=== PATIENT | male | born 1950 | race African-American/Black ===

== ENCOUNTER → 2017-02-26 | Outpatient (CLI) | payer MEDICARE, MEDICAID ==
[2016-03-08 11:22] VITALS: BP 119/68
[~2017-02-26] MED LIST: ATOR40TA59 PO; DOXA4TAB3 PO
--- NOTE | 2017-02-26 14:06 | RAD ---
Indication:Right upper quadrant pain Grayscale images of the abdomen were obtained. Comparison none. Note is made of a CT examination the abdomen and pelvis 12/08/2014. Liver:There is some increased attenuation of the ultrasound beam by the liver compatible with fatty infiltration. A focal mass lesion is not seen and the visualized liver. Gallbladder:Normal. The common bile duct diameter of approximately 3 mm is also normal Spleen:Normal Pancreas:Poorly visualized and largely obscured by gas Kidneys:There is a right renal cyst measuring approximately 3 cm in greatest dimension. There is a left renal cyst measuring approximately 2.4 cm in greatest dimension. No hydronephrosis or solid mass is seen associated with either kidney Abdominal aorta and IVC:The proximal and distal abdominal aorta appeared unremarkable. The mid abdominal aorta was excluded by gas. That portion of the inferior vena cava which was seen appeared unremarkable. Ancillary findings:None Impression:Fatty infiltration of the liver. Renal cysts. Midline structures partially obscured
--- NOTE | 2017-02-27 10:36 | RAD ---
Indication chest pain for 3 to 4 months. Shortness of breath. History of smoking. Cough. PA and lateral views of the chest were obtained. No prior plain film imaging of the chest is available. Heart size and pulmonary vessels are within normal limits. There is slight right hilar fullness. This is likely all vascular in nature. Comparison with old films establishing stability advised. If old films are unavailable then CT could be performed for confirmation. An acute parenchymal infiltrate is not seen. There is no significant pleural fluid or pneumothorax. IMPRESSION: No definite acute process. Slight right hilar fullness. See above discussion
== END | disposition home or self-care (01) ==
LOC: US 11:24
PROVIDERS: ATTEND Family Medicine
DX: K76.0 Fatty (change of) liver, not elsewhere classified (principal); N28.1 Cyst of kidney, acquired
CPT/HCPCS: 71020; 76700

== ENCOUNTER → 2017-03-05 | Outpatient (CLI) | payer MEDICARE, MEDICAID ==
[2016-03-08 11:22] VITALS: BP 119/68
--- NOTE | 2017-03-05 14:33 | RAD ---
CT of the chest without contrast, 03/05/2017: History: Shortness of breath, recent infiltrate Noncontrast scans were obtained as requested. There is mild calcific plaquing of the thoracic aorta without evidence of aneurysm. Moderate scattered coronary artery calcifications are present. The heart is not enlarged. No mediastinal or hilar adenopathy is seen. There are only minimal linear opacities in the lingula and lateral aspect of the right lower lobe suggesting scarring. No pulmonary mass or significant consolidation is seen. A couple of tiny scattered subpleural blebs are noted. There is no evidence of pleural fluid. A small low-density lesion in the posterior aspect of the upper pole of the right kidney is compatible with a cyst. There are moderate scattered spurs in the spine. IMPRESSION: 1. Minimal linear scarring in the lungs. 2. Calcific plaquing of the aorta and coronary arteries. 3. No acute abnormality is detected. PQRS Compliance Statement: One or more of the following individualized dose reduction techniques were utilized for this examination: 1. Automated exposure control 2. Adjustment of the mA and/or kV according to patient size 3. Use of iterative reconstruction technique
== END | disposition home or self-care (01) ==
LOC: CT 10:35
PROVIDERS: ATTEND Family Medicine
DX: I25.10 Atherosclerotic heart disease of native coronary artery without angina pectoris (principal)
CPT/HCPCS: 71250

== ENCOUNTER 2017-07-23 08:58 | Day surgery (SDC) | payer MEDICARE, MEDICAID ==
[~2017-07-23] VITALS: Ht 185.4 cm; Wt 49.0 kg
[~2017-07-23 08:58] MED LIST changes: +ASPI325T8 PO; +CHOL10003 PO; +HYDROmorphone 2 MG/ML VIAL IV PRN; +IV RINGERS,LACTATED 1000ML 1,000 ML IV SCH; +LIDOCAINE 1% PF 2 ML VIAL. ID PRN; +MORPHINE SULFATE 2 MG/ML DISP.SYRIN. IV PRN; +ONDANSETRON PF 4 MG/2 ML VIAL. IV PRN; +PROCHLORPERAZINE 10 MG/2 ML VIAL. IV PRN; +TAMS0.4C2 PO; +fentaNYL PF VIAL 100 MCG/2 ML VIAL IV PRN
[2017-07-23] MEDS ORDERED: LIDOCAINE 1% PF 30 ML VIAL. ONE (09:21)
[2017-07-23] MEDS ORDERED: PROPOFOL 20 ML IV ONE (10:10)
[2017-07-23] MEDS ORDERED: LIDOCAINE 2% PF Vial for OR 5 ML VIAL. ONE (10:10)
[2017-07-23] MEDS ORDERED: DEXAMETHASONE SOD PHOS 20 MG/5 ML VIAL. ONE (10:12)
[2017-07-23] MEDS ORDERED: fentaNYL PF VIAL 100 MCG/2 ML VIAL ONE (10:12)
[2017-07-23] MEDS ORDERED: ONDANSETRON PF 4 MG/2 ML VIAL. ONE (10:12)
[2017-07-23] MEDS ORDERED: ePHEDrine PF IN SALINE 50 MG/5 ML DISP.SYRIN IV ONE (11:09)
[2017-07-23] MEDS ORDERED: SEVOFLURANE 31 TO 60 MINUTES. IH ONE (11:10)
--- NOTE | 2017-07-23 11:18 | DISCH ---
DISCHARGE INSTRUCTIONS Condition on Discharge Condition on Discharge: Stable Activity After Discharge Activity Instructions for Disc: Other, see below Other activity instructions: no hard grasp with left hand Diet after Discharge Diet after Discharge: Regular Wound Incision Care Wound/Incision Care: Keep wound elevated, Change dressing Other wound/incision instructi: may remove dressing in 3 days, may shower no soaking hand Contacting the DRAlfreda after DC Call your doctor for: Concerns you may have Follow-Up Follow up with: Lamin 10 days JABARI RUIZ MD Jul 23, 2017 11:18
[2017-07-23] MEDS ORDERED: HYDR-965 PO (11:19)
[2017-07-23] MEDS ORDERED: SEVOFLURANE 16 TO 30 MINUTES. IH ONE (11:19)
[2017-07-23] MEDS ORDERED: PHENYLEPHRINE in 0.9% NACL PF 1 MG/10 ML DISP.SYRIN. IV ONE (11:26)
[2017-07-23] MEDS ORDERED: HYDROcodone/APAP 5/325MG 1 TAB TABLET PO ONE (11:45)
[2017-07-23] MEDS ORDERED: HYDROcodone/APAP 5/325MG 1 TAB TABLET ONE (11:46)
[2017-07-23 12:25] VITALS: BP 149/66
--- NOTE | 2017-07-23 19:23 | PDOC4 ---
Operative Note Operative Note Date of surgery: 07/23/2017 Preoperative diagnosis: Left third trigger finger Postoperative diagnosis: Same Operative procedure: Left third trigger finger release Surgeon: Lamin Anesthesia: Gen. Estimated blood loss 1 mL Complications: None Operative indications: Patient is a 66-year-old male with painful triggering of his left third finger that is been unresponsive to nonoperative management. I had discussed with him the possibility of injection observation and anti- inflammatories. His symptoms are becoming more limited and he was interested in a permanent solution of surgical release as opposed to potentially a temporary solution with injection. We talked about the possibility of infection or other medical or other anesthetic complications and the necessity of eliminating hard grasping for about the next 3 weeks and is healing. All his questions were answered he wants proceed with surgical evaluation and treatment. Operative text: Patient was identified procedure verified patient placed in the supine position on the operating room table. After adequate amounts of general anesthesia were administered tourniquet was placed on the left upper extremity left upper extremity was prepped and draped in standard sterile fashion and after timeout was performed patient procedure identified and verified the left upper extremity was exsanguinated and tourniquet inflated to 250 mmHg. An incision was made along the distal palmar crease overlying the flexor tendon of the third digit dissection carried out down to the tendon sheath and the A1 dane was divided under direct visualization and the neurovascular bundles on each side were protected. Tendon was noted to glide fully through the entire range of motion and tendons were otherwise in good condition. Closure accomplished with nylon suture in a mattress fashion sterile dressings were applied fingers were noted be warm pink find deflation of tourniquet patient was returned recovery room in stable condition having tolerated procedure well JABARI RUIZ MD Jul 23, 2017 19:23
== END 2017-07-23 12:25 | disposition home or self-care (01) ==
LOC: SURG 08:58
PROVIDERS: ATTEND Orthopaedic Surgery
DX: M65.332 Trigger finger, left middle finger (principal); I25.10 Atherosclerotic heart disease of native coronary artery without angina pectoris; K76.0 Fatty (change of) liver, not elsewhere classified; N40.0 Benign prostatic hyperplasia without lower urinary tract symptoms; I10 Essential (primary) hypertension; E78.00 Pure hypercholesterolemia, unspecified; E66.9 Obesity, unspecified; F17.210 Nicotine dependence, cigarettes, uncomplicated; Z80.9 Family history of malignant neoplasm, unspecified; Z79.899 Other long term (current) drug therapy; Z98.890 Other specified postprocedural states
CPT/HCPCS: 26055; J0690; J1100; J2370; J2405; J2704; J3010; J2001

== ENCOUNTER → 2021-02-16 | Outpatient (CLI) | payer MEDICARE, MEDICAID ==
[~2021-02-16] MED LIST changes: +HYDR-3165 PO; -HYDROmorphone 2 MG/ML VIAL IV PRN; -IV RINGERS,LACTATED 1000ML 1,000 ML IV SCH; -LIDOCAINE 1% PF 2 ML VIAL. ID PRN; -MORPHINE SULFATE 2 MG/ML DISP.SYRIN. IV PRN; -ONDANSETRON PF 4 MG/2 ML VIAL. IV PRN; -PROCHLORPERAZINE 10 MG/2 ML VIAL. IV PRN; -fentaNYL PF VIAL 100 MCG/2 ML VIAL IV PRN
--- NOTE | 2021-02-16 14:34 | RAD ---
EXAM: Chest CT low dose lung cancer screening without contrast. HISTORY: Cigarette smoking. TECHNIQUE: Computed tomographic images of the chest were obtained without contrast. Multiplanar refor matting was performed. *One or more of the following individualized dose reduction techniques were utilized for this examina tion: 1. Automated exposure control. 2. Adjustment of the mA and/or kV according to patient size. 3. Use of iterative reconstruction technique. COMPARISON: None. FINDINGS: The heart is normal in size. The aorta is normal in caliber. There is calcified atheroscler otic plaque involving the aorta and coronary arteries. There is no lymphadenopathy. There is no infil trate, pleural effusion or pneumothorax. There is mild emphysema with biapical subpleural bleb format ion. There is linear scarring within the lateral right upper lobe anterior medial right middle lobe. There is a 4 mm pleural-based nodule within the anterior left upper lobe (series 2, image 149). There is no acute finding involving the upper abdomen. There are degenerative changes involving the spine. There is no suspicious osseous lesion. IMPRESSION: 1. 4 mm pleural-based nodule within the anterior left upper lobe. Lung RADS category 2: Follow-up can be performed in 12 months. 2. Pulmonary emphysema. Electronically signed by: Rebeca Montoya MD (02/16/2021 2:32 PM) [id number]
--- NOTE | 2021-02-16 14:36 | RAD ---
EXAM: Renal sonogram. HISTORY: Renal cyst. TECHNIQUE: Sonographic imaging the kidneys and bladder was performed. COMPARISON: None. FINDINGS: The kidneys are normal in size. There is a 4.0 cm simple appearing cyst within the upper po le the right kidney. There is a 2.7 cm simple appearing cyst within the lower pole the left kidney. T here is no hydronephrosis. There is an enlarged prostate with a volume of 117 cc. This deforms the bl adder base. There is incidental hepatic steatosis. IMPRESSION: 1. Simple appearing bilateral renal cysts. Follow-up as energy performed for simple cysts. 2. Prostatomegaly. This results in deformation of the bladder base. 3. Hepatic steatosis. Electronically signed by: Rebeca Montoya MD (02/16/2021 2:34 PM) [id number]
== END ==
LOC: US 13:55
PROVIDERS: ATTEND Family Medicine
DX: J43.9 Emphysema, unspecified (principal); R91.1 Solitary pulmonary nodule; K76.0 Fatty (change of) liver, not elsewhere classified; N40.0 Benign prostatic hyperplasia without lower urinary tract symptoms; N28.1 Cyst of kidney, acquired; F17.210 Nicotine dependence, cigarettes, uncomplicated
CPT/HCPCS: 71271; 76770

== ENCOUNTER → 2021-08-10 | Outpatient (CLI) | payer MEDICARE, MEDICAID ==
--- NOTE | 2021-08-10 11:25 | RAD ---
EXAM: Bilateral lower extreme arterial Doppler sonogram. HISTORY: Peripheral vascular disease. Pain. Atherosclerosis. TECHNIQUE: Tsang scale and color Doppler sonographic imaging of the lower extremity arteries with spec tral waveform analysis was performed. COMPARISON: None. FINDINGS: There are abnormal monophasic waveforms involving the left lower extremity arteries from th e mid superficial femoral artery to the foot. There are abnormal monophasic waveforms involving the r ight lower extremity arteries from the posterior tibial artery to the foot. The size or consistent wi th hemodynamically significant proximal stenosis. There is an elevated peak systolic velocity within the right common femoral artery, measuring 208 cm/ s. There are normal peak systolic velocities throughout the remainder the lower extremity arteries. N o arterial occlusion is seen. IMPRESSION: 1. Abnormal monophasic waveforms due to low flow in the setting of hemodynamically significantly prox imal stenosis from the right posterior tibial artery to the foot and from the left mid superficial fe moral artery to the foot. 2. Elevated peak systolic velocity within the right common femoral artery due to suspected stenosis. 3. No evidence of arterial occlusion. Electronically signed by: Rebeca Montoya MD (08/10/2021 11:22 AM) [id number]
== END ==
LOC: US 10:28
PROVIDERS: ATTEND Family Medicine
DX: R93.89 Abnormal findings on diagnostic imaging of other specified body structures (principal); I73.9 Peripheral vascular disease, unspecified; M79.604 Pain in right leg; M79.605 Pain in left leg
CPT/HCPCS: 93925

== ENCOUNTER 2021-08-24 08:01 | Outpatient (CLI) | payer MEDICARE, MEDICAID ==
[2021-08-24] VITALS (11 sets, daily range): BP systolic 154–186; BP diastolic 67–88
[~2021-08-24] VITALS: Ht 185.4 cm; Wt 109.0 kg
[2021-08-24 08:30] LABS: BASO # 0.1 x10^3/uL (0.0-0.2); BASO % 1 % (0-3); EOS # 0.3 x10^3/uL (0.0-0.7); EOS % 5 % (0-3); HEMATOCRIT 40.7 % (39.0-53.0); HEMOGLOBIN 13.5 g/dL (13.0-17.5); LYMPH # 1.8 x10^3/uL (1.0-4.8); LYMPH % 29 % (24-48); MEAN CORPUSCULAR HEMOGLOBIN 29 pg (25-35); MEAN CORPUSCULAR HGB CONC 33 g/dL (31-37); MEAN CORPUSCULAR VOLUME 86 fL (79-100); MONO # 0.6 x10^3/uL (0.0-1.1); MONO % 10 % (0-9); NEUT # 3.3 x10^3/uL (1.8-7.7); NEUT % 55 % (31-73); PLATELET COUNT 365 x10^3/uL (140-400); RED BLOOD COUNT 4.74 x10^6/uL (4.30-5.70); RED CELL DISTRIBUTION WIDTH 15.4 % (11.5-14.5); WHITE BLOOD COUNT 6.1 x10^3/uL (4.0-11.0)
[2021-08-24 08:43] LABS: PROTHROMBIN TIME PATIENT 13.2 SEC (11.7-14.0)
[2021-08-24 08:52] LABS: CALCIUM 8.9 mg/dL (8.5-10.1); CREATININE 0.9 mg/dL (0.7-1.3); GFR 100.4; POTASSIUM 3.6 mmol/L (3.5-5.1)
[2021-08-24] MEDS ORDERED: fentaNYL PF VIAL 100 MCG/2 ML VIAL ONE (08:56)
[2021-08-24] MEDS ORDERED: HEPARIN for IV BOLUS 10,000 UNIT/10 ML VIAL. ONE (08:56)
[2021-08-24] MEDS ORDERED: MIDAZOLAM HCL/PF 2 MG/2 ML VIAL. ONE (08:56)
[2021-08-24] MEDS ORDERED: MIDAZOLAM HCL/PF 2 MG/2 ML VIAL. IV ONE (09:15)
[2021-08-24] MEDS ORDERED: LIDOCAINE 1% Multi-Dose 20 ML VIAL. INJ ONE (09:15)
[2021-08-24] MEDS ORDERED: fentaNYL PF VIAL 100 MCG/2 ML VIAL IV ONE (09:15)
[2021-08-24] MEDS ORDERED: IODIXANOL 320 MG/ML 100 ML VIAL. IART ONE (09:15)
[2021-08-24] MEDS ORDERED: LIDOCAINE WITH 8.4% SOD BICARB 3 ML DISP.SYRIN. ONE (09:36)
[2021-08-24] MEDS ORDERED: IODIXANOL 320 MG/ML 100 ML VIAL. ONE (09:40)
[2021-08-24] MEDS ORDERED: HEPARIN for ARTERIAL LINE 1,500 ML ONE (09:40)
[2021-08-24] MEDS ORDERED: LIDOCAINE WITH 8.4% SOD BICARB 3 ML DISP.SYRIN. INJ ONE (10:00)
[2021-08-24] MEDS ORDERED: HEPARIN for IV BOLUS 10,000 UNIT/10 ML VIAL. IV ONE (10:45)
[2021-08-24] MEDS ORDERED: CLOPIDOGREL BISULFATE 75 MG TABLET ONE (11:13)
[2021-08-24] MEDS ORDERED: CLOPIDOGREL BISULFATE 75 MG TABLET PO ONE (11:15)
--- NOTE | 2021-08-24 13:30 | NUR ---
Plavix 75mg po daily script called into [facility] per patient's request. Patient took loading dose of 300mg po today and will need to remain on Plavix for [address] Espinoza.
[2021-08-24] MEDS ORDERED: CLOP75TA PO (13:34)
--- NOTE | 2021-08-24 14:44 | NUR ---
patient ambulated and tolerated PO. PIV dc'd. discharge instructions reviewed with patient and family. Pt home with family in private vehicle.
--- NOTE | 2021-08-24 16:17 | RAD ---
08/24/2021 1. Abdominal aortogram 2. Pelvic angiography 3. Left lower extremity angiography including selective injections of the left common femoral artery, and superficial femoral 4. Treatment of short segment, near occlusion, mid left superficial femoral artery placement of a cov ered stent 5. Right lower extremity angiography Discussion: 70-year-old male with known peripheral vascular disease and left lower extremity claudica tion. Ultrasound suggests significant stenosis of the left SFA. Consent: The procedure was explained in its entirety to the patient or the patients designated repres entative by a member of the treatment team, including a discussion of the risks, benefits and commonl y accepted alternatives to the procedure, as well as the expected consequences of no therapy whatsoev er. Discussion of the risks included, but was not limited to, those that are most frequent and thos e that are rare but possibly severe or life-threatening, as well as the possibility of unforeseen com plications. Procedural details: The right groin was prepped and draped using maximum sterile barrier technique. 1 % lidocaine was administered for local anesthesia. Ultrasound evaluation demonstrates the right commo n femoral artery be patent. The artery was accessed under direct ultrasound guidance using micropunct ure technique. Reference ultrasound images were saved medical record. A 5 [place] sheath was placed. T he catheter was advanced into the abdominal aorta. Abdominal aortogram was obtained. Visualized major abdominal aortic branches are patent. The distal abdominal aorta is densely calcified, and there is a small penetrating ulcer along the left side of the abdominal aorta. The catheter was repositioned in the inferior abdominal aorta and pelvic angiograms were obtained. Mi ld stenosis of the left internal iliac artery is seen. No hemodynamically significant aortoiliac megan c stenosis was identified. Catheter was repositioned in the left common femoral artery and angiograms were obtained demonstratin g a patent proximal left SFA and a rather sizable, patent profunda artery. The catheter was repositioned in the superficial femoral artery and angiograms were obtained demonstr ating near occlusion of the mid distal left SFA. The stenosis is calcified, and markedly irregular. T he popliteal artery and posterior runoff vessels are patent. The stenosis was traversed and predilated with a 5 mm balloon. A 6 mm x 5 cm moderate covered stent w as placed. This was postdilated to 6 mm resulting in significantly improved morphology and flow. Limi frederick angiograms of the right lower extremity were then obtained demonstrating similar significant sten osis in the distal right SFA. The right common femoral puncture site was confirmed. A minx device was deployed in the sheath was removed. Hemostasis was achieved. Sterile dressings were applied. IMPRESSION: 1. No hemodynamically significant aortoiliac or tibial disease on the left 2. Near occlusion of the left mid to distal SFA treated with placement of a covered stent 3. Moderate stenosis of the distal right SFA. Patient will recover from today's procedure and should right claudication become an issue, may return for further evaluation. Electronically signed by: Rob Espinoza MD (08/24/2021 4:15 PM) [id number]
[2021-08-25] MEDS ORDERED: CLOPIDOGREL BISULFATE 75 MG TABLET PO SCH (08:00)
== END 2021-08-24 14:45 | disposition home or self-care (01) ==
LOC: INTRAD 08:01
PROVIDERS: ATTEND Family Medicine
DX: I70.213 Atherosclerosis of native arteries of extremities with intermittent claudication, bilateral legs (principal); I10 Essential (primary) hypertension; E78.00 Pure hypercholesterolemia, unspecified; E66.9 Obesity, unspecified; N40.0 Benign prostatic hyperplasia without lower urinary tract symptoms; F17.210 Nicotine dependence, cigarettes, uncomplicated; Z79.899 Other long term (current) drug therapy; Z72.89 Other problems related to lifestyle; Z98.890 Other specified postprocedural states
CPT/HCPCS: 36415; 37226; 75625; 75716; 80048; 85025; 85610; 99152; 99153; C1725; C1760; C1769; C1874; C1892; C1894; J1644; J2250; J3010; J3490; Q9967; G0269

== ENCOUNTER → 2022-02-04 | Outpatient (CLI) | payer MEDICARE, MEDICAID ==
[2021-08-24 14:05] VITALS: BP 161/74
[~2022-02-04] MED LIST changes: +CLOP75TA PO
--- NOTE | 2022-02-05 07:47 | RAD ---
EXAM: CT CHEST WITHOUT CONTRAST (LDCT LUNG CANCER SCREENING). HISTORY: Risk factors for pulmonary malignancy. Cigarette smoking. TECHNIQUE: CT of the chest was performed without intravenous contrast using a low-dose lung screening protocol. Findings analysis is based on ACR Lung-RADS v1.1. *One or more of the following individual ized dose reduction techniques were utilized for this examination: 1. Automated exposure control. 2. Adjustment of the mA and/or kV according to patient size. 3. Use of iterative reconstruction technique. COMPARISON: 02/16/2021. FINDINGS: The heart is normal in size. There is coronary artery calcification. There is calcified ath erosclerotic plaque involving the aorta. There is no lymphadenopathy. There is no infiltrate, pleural effusion or pneumothorax. There is mild emphysema. There is a 3 mm pleural-based nodule within the a nterior right upper lobe. There is focal pleural parenchymal scarring within the lateral right lower lobe. There is no acute or suspicious osseous finding. There are degenerative changes throughout the thoracic spine. IMPRESSION/RECOMMENDATION: 1. Stable pleural-based 3 mm right upper lobe nodule, allowing for differences in measurement techniq ue. Lung RADS category 2: Low dose chest CT in 12 months is recommended. 2. Emphysema with lateral right lower lobe pleural parenchymal scarring, stable in appearance. 3. Coronary artery calcification. Electronically signed by: Rebeca Montoya MD (02/04/2022 12:31 PM) [facility]
== END ==
LOC: CT 09:23
PROVIDERS: ATTEND Family Medicine
DX: Z12.2 Encounter for screening for malignant neoplasm of respiratory organs (principal); I25.10 Atherosclerotic heart disease of native coronary artery without angina pectoris; I70.0 Atherosclerosis of aorta; J43.9 Emphysema, unspecified; J94.8 Other specified pleural conditions; M47.814 Spondylosis without myelopathy or radiculopathy, thoracic region; F17.210 Nicotine dependence, cigarettes, uncomplicated; R91.1 Solitary pulmonary nodule
CPT/HCPCS: 71271